=== PATIENT | male | born 1985 | race Caucasian/White ===

== ENCOUNTER 2019-09-05 12:36 | Emergency (ER) | payer OTHER | END 2019-09-05 12:55 | disposition left against medical advice (07) | LOC: ER 12:36 | DX: Z53.21 Procedure and treatment not carried out due to patient leaving prior to being seen by health care provider (principal) ==

== ENCOUNTER 2019-09-06 02:45 | Emergency (ER) | payer OTHER, BC ==
[2019-09-06] MEDS ORDERED: LIDOCAINE 1%/EPINEPHRINE INJ 20 ML VIAL INJ ONE (05:17)
--- NOTE | 2019-09-06 05:19 | ER Document Report ---
ED Skin Rash/Insect Bite/Abscs - General Chief Complaint: Cyst Stated Complaint: SKIN ISSUE Time Seen by Provider: 09/06/19 05:13 Primary Care Provider: [facility] [Provider Group] - Follow up as needed Notes: Patient is a 34-year-old male that comes to the emergency department for chief complaint of 1 week of worsening pain in the top right buttock area, he states he has had a pilonidal cyst abscess 3 times before [address] the [address] place, he had to have it lanced twice in the past. He states he has never been able to follow-up with a surgical clinic. He has been soaking in warm water without success. He denies fever, painful bowel movements, nausea or vomiting, or any other complaints. He denies any medical history otherwise, denies any daily medications. TRAVEL OUTSIDE OF THE [place] IN LAST 30 DAYS: No - Related Data Allergies/Adverse Reactions: Penicillins Allergy (Severe, Verified 09/06/19 02:50) Difficulty breathing Past Medical History - General Information source: Patient - Social History Smoking Status: Current Every Day Smoker Frequency of alcohol use: None Drug Abuse: None Lives with: Family Family History: Reviewed & Not Pertinent Patient has suicidal ideation: No Patient has homicidal ideation: No GI Medical History: Reports: Hx Gastroesophageal Reflux Disease - Immunizations Immunizations up to date: Yes Hx Diphtheria, Pertussis, Tetanus Vaccination: Yes Review of Systems - Review of Systems Constitutional: No symptoms reported EENT: No symptoms reported Cardiovascular: No symptoms reported Respiratory: No symptoms reported Gastrointestinal: No symptoms reported Genitourinary: No symptoms reported Male Genitourinary: No symptoms reported Musculoskeletal: No symptoms reported Skin: See HPI Hematologic/Lymphatic: No symptoms reported Neurological/Psychological: No symptoms reported Physical Exam - Vital signs Vitals: Temp Pulse Resp BP 98.1 F 104 H 16 164/91 H 09/06/19 02:45 09/06/19 02:45 09/06/19 02:45 09/06/19 02:45 - Notes Notes: GENERAL: Alert, interacts well. No acute distress. HEAD: Normocephalic, atraumatic. EYES: Pupils equal, round, and reactive to light. Extraocular movements intact. ENT: Oral mucosa moist, tongue midline. Oropharynx unremarkable. LUNGS: Clear to auscultation bilaterally, no wheezes, rales, or rhonchi. No respiratory distress. HEART: Regular rate and rhythm. No murmur ABDOMEN: Soft, non-tender. Non-distended. RECTAL: There is an obvious right-sided pilonidal cyst abscess at the gluteal cleft superiorly, there is no spreading cellulitis away from the area, evaluatio n of the anus is normal. Exam performed with Patrick CASTELLANOS present. EXTREMITIES: Moves all 4 extremities spontaneously. No edema, normal radial and dorsalis pedis pulses bilaterally. No cyanosis. BACK: no cervical, thoracic, lumbar midline tenderness. No saddle anesthesia, normal distal neurovascular exam. Moves all extremities in full range of motion. NEUROLOGICAL: Alert and oriented x3. Normal speech. Cranial nerves II through XII grossly intact. PSYCH: Normal affect, normal mood. SKIN: Warm, dry, normal turgor. No rashes or lesions noted. Course - Re-evaluation Re-evalutation: Pilonidal cyst abscess was drained with very large results. There is no surrounding cellulitis however. Patient tolerated this well. This was packed, patient is accustomed to this. He states he will follow-up with surgical clinic because of recurrence. Discussed return precautions and care. Patient states understanding and agreement. Stable at time of discharge. - Vital Signs Vital signs: Temp Pulse Resp BP Pulse Ox 98.1 F 93 18 143/81 H 97 09/06/19 06:35 09/06/19 06:35 09/06/19 06:35 09/06/19 06:35 09/06/19 06:35 Procedures - Incision and Drainage Right-sided pilonidal cyst abscess Type: Single Anesthetic type: 1% Lidocaine w/epi mL's of anesthetic: 9 Blade size: 11 I&D procedure: Shurclens applied, Iodoform packing placed, Sterile dressing applied Incision Method: Incision made by scalpel Amount/type of drainage: About 25 cc of purulent drainage Discharge - Discharge Clinical Impression: Pilonidal cyst with abscess Condition: Stable Disposition: HOME, SELF-CARE Additional Instructions: The pilonidal cyst abscess has been drained. Keep packing in for 2 to 3 days, afterwards you must remove this or be re-seen. Because of the recurrence of the pilonidal cyst abscess I recommend follow-up with the surgical clinic for additional management, call for your appointment. Come back if you are worse including increased pain, spreading redness, fever/chills, or any other concerning symptoms. Forms: Elevated Blood Pressure Referrals: [facility] [Provider Group] - Follow up as needed
[2019-09-06 06:34] VITALS: BP 143/81
== END 2019-09-06 06:35 | disposition home or self-care (01) ==
LOC: ER 02:45
PROC: 0H98XZZ Drainage of Buttock Skin, External Approach (ICD-10-PCS; principal; 2019-09-06)
DX: L05.01 Pilonidal cyst with abscess (principal); F17.200 Nicotine dependence, unspecified, uncomplicated
CPT/HCPCS: 10080; A6266; J3490; 99282